=== PATIENT | male | born 2000 | race Caucasian/White ===

== ENCOUNTER 2022-03-14 08:29 | Outpatient (CLI) | payer OTHER, SELFPAY ==
[2022-03-14 14:55] LABS: Chloride* 109 mmol/L (96-114); Potassium* 4.2 mmol/L (3.6-5.1); Sodium* 141 mmol/L (135-149)
[2022-03-14 14:58] LABS: Blood Urea Nitrogen* 16 mg/dL (5-24); Carbon Dioxide* 22 mmol/L (20-32); Creatinine* 1.1 mg/dL (0.5-1.5); Estimated Glomerular Filt Rate 99 ml/min
[2022-03-14 14:59] LABS: Calcium* 9.7 mg/dL (8.4-10.6); Glucose* 81 mg/dL (60-115)
== END 2022-03-14 08:30 | disposition home or self-care (01) ==
LOC: LKVREF 08:29
PROVIDERS: Visit Provider Emergency Medicine
DX: Z01.818 Encounter for other preprocedural examination (principal)
CPT/HCPCS: 80048

== ENCOUNTER 2022-03-15 09:38 | Day surgery (SDC) | payer OTHER, SELFPAY ==
[2022-03-15] VITALS (12 sets, daily range): BP systolic 130–160; BP diastolic 45–93; PULSE 51–67; RESP 14–16; TEMP 36.5–37.5; O2SAT 99–100; BMI 26.6
[2022-03-15] MEDS: SODIUM CHLORIDE 0.9 % (FLUSH) 10 ML SYRINGE IVF (10:38)
[2022-03-15] MEDS: LACTATED RINGERS 1000 ML 1,000 ML 100 ML IV (10:40)
[2022-03-15] MEDS: OXYMETAZOLINE 0.05% NASAL SPRAY 2 SPRAY NOSTRIL-B (11:10)
[2022-03-15] MEDS: COCAINE HCL 4 % 4 ML SOLUTION NOSTRIL-B (11:53)
[2022-03-15] MEDS: BUPIVACAINE 0.5%/EPINEPHRINE 0.9 MG (30.9 ML) INJECTION (11:53)
[2022-03-15] MEDS: MUPIROCIN 1 GM PACKET 1 APPLIC TOPICAL (12:12)
--- NOTE | 2022-03-15 12:21 | W.ANESCHARGE ---
Anesthesia Charges Start Date/Time Anesthesia Start Date: 03/15/22 Anesthesia Start Time: 11:42 Stop Date/Time Anesthesia Stop Date: 03/15/22 Anesthesia Stop Time: 12:30 Summary Emergency: No
--- NOTE | 2022-03-15 12:31 | W.ANESCHARGE ---
Anesthesia Charges Start Date/Time Anesthesia Start Date: 03/15/22 Anesthesia Start Time: 11:42 Stop Date/Time Anesthesia Stop Date: 03/15/22 Anesthesia Stop Time: 12:30 Summary Emergency: No
--- NOTE | 2022-03-15 13:10 | W.PM.ENTPROC ---
Procedure Note Date of procedure: 03/15/22 Procedure: preoperative diagnosis chronic tonsillitis adenotonsillar hypertrophy, right middle turbinate casi bullosa, nasal septal deflection, inferior turbinate hypertrophy, nasal obstruction. Postoperative diagnosis same Procedure is adenotonsillectomy, septoplasty, endoscopic partial resection right middle turbinate casi bullosa, intramural cautery inferior turbinates. Under general endotracheal anesthesia patient was prepped and draped in usual fashion. The nose was decongested. The [place] mouth gag was inserted the tongue retracted forward. No submucous cleft was noted. The right and left tonsil were removed with a combination of needlepoint and Coblation cautery. Meticulous hemostasis was achieved. The nasopharynx was visualized with a laryngeal mirror indirectly and the adenoid pad was enlarged. It was removed with suction cautery. After regarding and gloving attention was turned to the nose. There is a left area for septal impaction. An incision was made just anterior to this with a 15 blade mucosa on either side the impaction elevated with a Dee dissector. Turbinate scissors was used to cut above below than the bone spur was infractured and removed. A piece of this bone was trimmed and returned to the intraseptal space. The right middle turbinate casi bullosa was incised along its inferolateral aspect and a tunnel created with a Evangeline dissector. The casi bone was then infractured the remainder of the turbinate crushed with the [place] forceps. Both inferior turbinates were outfractured and then cauterize intramurally at the anterior head and inferior 10% with the Coblation Wand. A Merocel pack coated in Bactroban was placed overlying the septal incision on the left side and beneath the middle turbinate on the right side. The patient procedure well was taken recovery in satisfactory condition. Prior to extubation I did check tonsillar fossa and there was no bleeding. Blood loss during procedure was less than 25 mL. Complications none Surgeon: Da Pham MD
[2022-03-15] MEDS: OXYCODONE 1 MG/ML ORAL SOLN PO (13:20)
== END 2022-03-15 14:15 | disposition home or self-care (01) ==
PROVIDERS: Visit Provider Otolaryngology
PROC: (CPT 31231; principal; 2022-03-15 11:00)
DX: J35.01 Chronic tonsillitis (principal); J35.3 Hypertrophy of tonsils with hypertrophy of adenoids; J34.3 Hypertrophy of nasal turbinates; J34.2 Deviated nasal septum; J34.89 Other specified disorders of nose and nasal sinuses
CPT/HCPCS: 42821; 30520; 31240; 30802; 160; 88304; A9270; J0330; J1100; J2250; J2405; J2704; J3010; J7120